=== PATIENT | male | born 1960 | race Caucasian/White ===

== ENCOUNTER 2019-12-27 06:10 | Day surgery (SDC) | payer BC, OTHER ==
[~2019-12-27] VITALS: Ht 182.9 cm; Wt 117.3 kg
[2019-12-27] MEDS ORDERED: AMLODIPINE BESYL5 MG PO (06:54)
[2019-12-27] MEDS ORDERED: LANTUS SOL100 UNIT/1 SUB-Q (06:54)
[2019-12-27] MEDS ORDERED: ATORVASTATIN CA10 MG PO (06:56)
[2019-12-27] MEDS ORDERED: PIOGLITAZONE HC15 MG PO (06:57)
[2019-12-27] MEDS ORDERED: CELECOXIB100 MG PO (06:57)
[2019-12-27] MEDS ORDERED: GABAPENTIN300 MG PO (06:57)
[2019-12-27] MEDS ORDERED: LOSARTAN POTAS100 MG PO (06:57)
[2019-12-27] MEDS ORDERED: FLUOXETINE HCL20 MG PO (06:58)
[2019-12-27] MEDS ORDERED: TRULICITY1.5 MG/0.5 (06:58)
[2019-12-27] MEDS ORDERED: DICLOFENAC SODI75 MG PO (06:58)
--- NOTE | 2019-12-27 08:06 | NUR ---
12/27/19 0806 Amy Kidd 0803- PT OT PACU IN LL POSITION EYES CLOSED. PT RESPONDS TO VERBAL STIMULI AND DENIES PAIN. BREATHING EASY AND UNLABORED. SPO2 >95% ON 2 L O2 VIA NC. POC DISCUSSED WITH PT. PT ENCOURAGED TO PASS GAS.
--- NOTE | 2019-12-27 10:17 | OR ---
[facility] [address], [place] [address] Signed DATE OF OPERATION: 12/27/2019 SURGEON: Toma Fitzgerald MD PREOPERATIVE DIAGNOSIS: Sister with colonic polyps in her late 50s. POSTOPERATIVE DIAGNOSES: 1. Minimal internal hemorrhoids. 2. Sessile cecal/ileocecal valve mass ( /clip) and polyp #2. 3. 5 mm polyp proximal right colon. 4. 5 mm polyp at 50 cm. 5. 5 mm polyp at 25 cm. 6. 7 mm polyp at 20 cm. 7. 5 mm polyp at 15 cm (rectum). PROCEDURE: Colonoscopy with snare polypectomy, hot biopsy, and placement of clip. ESTIMATED BLOOD LOSS: None. INDICATIONS: Homer is a 59-year-old diabetic gentleman, asked to see me for his initial colonoscopy. He explained that his sister had colonic polyps removed in her late 50s. She has to go every 5 years for her procedures. Homer really has no lower GI complaints. I had given him a pamphlet on colonoscopy and he understands the nature of that test along with its risks including, but not limited to gas bloating, crampy abdominal pain, bleeding, perforation requiring surgery, and missed diagnosis. He also understands the need for IV conscious sedation. He had expressed understanding and wished to proceed. PROCEDURE NOTE: Homer was taken into our endoscopy suite and placed in the left lateral decubitus position. He was given a total of 8 mg of Versed and 200 mcg of fentanyl to cover the case. A digital rectal exam was performed and this was unremarkable. The adult colonoscope was introduced and advanced under direct visualization of the camera. He had a loop in his colon around 35 cm. It took a few minutes to get through this area and then the scope passed to about the hepatic flexure. He needed extra sedation and abdominal compression in order to get the scope down to the cecum itself. His prep was Electronically Signed By: TOMA FITZGERALD MD 12/27/19 1017 PATIENT NAME: HOMER HURTADO OPERATIVE REPORT DATE OF : 62 REPORT #: [id number] PHYSICIAN: TOMA FITZGERALD MD PCP: AUNG SHEA REPORT IS CONFIDENTIAL AND NOT TO BE RELEASED WITHOUT AUTHORIZATION [facility] [address], [place] [address] Signed good. We could easily see the appendiceal orifice and the ileocecal valve. We took pictures throughout for photodocumentation. He has a sessile cecal mass along the ileocecal valve, which we took multiple biopsies with a hot biopsy forceps along with our snare. He had little bleeding on 1 side, so we placed a clip and then there was another polyp opposite of that in the cecum and we simply removed it with hot biopsy forceps and placed it into the same jar. As the scope was withdrawn, then we removed the other polyps with the help of our hot biopsy forceps. We did not see any diverticulosis. The scope was then retroflexed in the rectum, and he does have minimal internal hemorrhoid tissue. After this, the gas was suctioned out. Colonoscope removed. Homer tolerated his procedure quite well. RECOMMENDATIONS: I will see Homer back in my office in 7 to 14 days to review his results. He may need a right colectomy and/or a repeat colonoscopy depending on the pathology results for this cecal mass. Toma Fitzgerald MD ALB/MODL /[id number] cc: Toma Fitzgerald MD Chart Filed Incomplete RADHA Gordon Copies: TOMA FITZGERALD MD CHART FILED INCOMPLETE ~ Electronically Signed By: TOMA FITZGERALD MD 12/27/19 1017 PATIENT NAME: HOMER HURTADO OPERATIVE REPORT DATE OF : 62 REPORT #: [id number] PHYSICIAN: TOMA FITZGERALD MD PCP: AUNG SHEA REPORT IS CONFIDENTIAL AND NOT TO BE RELEASED WITHOUT AUTHORIZATION
--- NOTE | 2019-12-28 11:43 | PATH ---
[facility] [address] [place], [place] [address] Signed SPECIMEN(S): A COLON POLYP AT 25 CM SPECIMEN(S): B COLON POLYP AT 50 CM SPECIMEN(S): C CECAL POLYP SPECIMEN(S): D PROXIMAL ASCENDING POLYP SPECIMEN(S): E COLON POLYP AT 20 CM SPECIMEN(S): F COLON POLYP AT 15 CM SPECIMEN SOURCE: A. COLON POLYP AT 25 CM B. COLON POLYP AT 50 CM C. CECAL POLYP D. PROXIMAL ASCENDING POLYP E. COLON POLYP AT 20 CM F. COLON POLYP AT 15 CM CLINICAL HISTORY: Colonoscopy. Family history of polyps, screening. Rule out cecal cancer, . MICROSCOPIC DESCRIPTION: Histologic sections of all submitted blocks are examined by light microscopy. These findings, together with the gross examination, support the pathologic diagnosis. FINAL PATHOLOGIC DIAGNOSIS: A. Colon, polyp at 25 cm, polypectomy: - Fragments of tubular adenoma. - Negative for high-grade dysplasia or malignancy. B. Colon, polyp at 50 cm, polypectomy: - Tubular adenoma. - Negative for high-grade dysplasia or malignancy. C. Colon, cecum, polyp, polypectomy: - Fragments of tubulovillous adenoma. - Negative for high-grade dysplasia or malignancy. D. Colon, proximal ascending, polyp, polypectomy: - Tubular adenoma. - Negative for high-grade dysplasia or malignancy. E. Colon, polyp at 20 cm, polypectomy: - Hyperplastic polyp. - Negative for dysplasia or malignancy. F. Colon, polyp at 15 cm, polypectomy: - Tubular adenoma. - Negative for high-grade dysplasia or malignancy. PATIENT NAME: DIANA HURTADO PATHOLOGY DATE OF : 62 REPORT #: [id number] PHYSICIAN: LUCY SANABRIA PCP: AUNG SHEA REPORT IS CONFIDENTIAL AND NOT TO BE RELEASED WITHOUT AUTHORIZATION [facility] [address] [place], [place] [address] Signed NAL:cml:C2NR GROSS DESCRIPTION: Six specimens are received in six containers, labeled "MF." A. The specimen, labeled "MF, #1," and designated on the requisition "colon polyp at 25 cm," is received in formalin and consists of one lorenz soft tissue fragment that measures 0.3 cm in greatest dimension. The specimen is entirely submitted in cassette (A1). B. The specimen, labeled "MF, #2," and designated on the requisition "colon polyp at 50 cm," is received in formalin and consists of one lorenz soft tissue fragment that measures 0.3 cm in greatest dimension. The specimen is entirely submitted in cassette (B1). C. The specimen, labeled "MF, #3," and designated on the requisition "cecal polyp," is received in formalin and consists of multiple lorenz soft tissue fragments that measure 0.4 cm in greatest dimension. The specimen is entirely submitted in cassette (C1). D. The specimen, labeled "MF, #4," and designated on the requisition "proximal ascending/right polyp," is received in formalin and consists of one lorenz soft tissue fragment that measures 0.4 cm in greatest dimension. The specimen is entirely submitted in cassette (D1). E. The specimen, labeled "MF, #5," and designated on the requisition "colon polyp at 20 cm," is received in formalin and consists of one lorenz soft tissue fragment that measures 0.3 cm in greatest dimension. The specimen is entirely submitted in cassette (E1). F. The specimen, labeled "MF #6," and designated on the requisition "colon polyp at 15 cm," is received in formalin and consists of one lorenz soft tissue fragment that measures 0.3 cm in greatest dimension. The specimen is entirely submitted in cassette (F1). AT (under the direct supervision of a pathologist) The Gross Description was prepared using a voice recognition system. The report was reviewed for accuracy; however, sound-alike word errors, addition and/or deletions may occur. If there is any question about this report, please contact Client Services. PERFORMING LABORATORY: The technical component was performed by [facility] [address] (Pipe Smoking Machine Offbearer: Ivett Richard MD; CLIA# [id number]). [facility] [address] [address] (CLIA# [id number]). PATIENT NAME: DIANA HURTADO PATHOLOGY DATE OF : 62 REPORT #: [id number] PHYSICIAN: LUCY SANABRIA PCP: AUNG SHEA REPORT IS CONFIDENTIAL AND NOT TO BE RELEASED WITHOUT AUTHORIZATION [facility] [address] [place], [place] [address] Signed Diagnostician: Tatiana Natarajan MD Pathologist Electronically Signed 12/28/2019 Copies: ~ PATIENT NAME: DIANA HURTADO PATHOLOGY DATE OF : 62 REPORT #: [id number] PHYSICIAN: LUCY PATHOLOGY PCP: AUNG SHEA REPORT IS CONFIDENTIAL AND NOT TO BE RELEASED WITHOUT AUTHORIZATION
== END 2019-12-27 08:40 | disposition home or self-care (01) ==
LOC: OPS 06:10 → DS 06:10 → OPS 08:15 → DS 08:15 → OPS 08:40
PROVIDERS: ATTEND Colon & Rectal Surgery
PROC: 0DBE8ZZ Excision of Large Intestine, Via Natural or Artificial Opening Endoscopic (ICD-10-PCS; 2019-12-27)
PROC: 0DBH8ZZ Excision of Cecum, Via Natural or Artificial Opening Endoscopic (ICD-10-PCS; 2019-12-27)
PROC: 0D5K8ZZ Destruction of Ascending Colon, Via Natural or Artificial Opening Endoscopic (ICD-10-PCS; 2019-12-27)
PROC: 0DBK8ZZ Excision of Ascending Colon, Via Natural or Artificial Opening Endoscopic (ICD-10-PCS; principal; 2019-12-27 08:15)
DX: Z12.11 Encounter for screening for malignant neoplasm of colon (principal); D12.0 Benign neoplasm of cecum; D12.2 Benign neoplasm of ascending colon; D12.6 Benign neoplasm of colon, unspecified; K64.8 Other hemorrhoids; Z83.71 Family history of colonic polyps
CPT/HCPCS: 99153; G0500; J0690; J2250; J3010; J7121

== ENCOUNTER 2020-03-20 06:15 | Day surgery (SDC) | payer BC, OTHER ==
--- NOTE | 2020-03-17 11:48 | NUR ---
Both nares swabbed for Covid-19 without complication. Sample taken to [facility]. Patient given pre-procedure preparation self-isolation handout.
[~2020-03-20] VITALS: Ht 182.9 cm; Wt 117.3 kg
[~2020-03-20 06:15] MED LIST: AMLODIPINE BESYL5 MG PO; ATORVASTATIN CA10 MG PO; CELECOXIB100 MG PO; DICLOFENAC SODI75 MG PO; FLUOXETINE HCL20 MG PO; GABAPENTIN300 MG PO; LANTUS SOL100 UNIT/1 SUB-Q; LOSARTAN POTAS100 MG PO; PIOGLITAZONE HC15 MG PO; TRULICITY1.5 MG/0.5
[2020-03-20] MEDS ORDERED: ULTRAM50 MG PO (06:28)
--- NOTE | 2020-03-20 08:41 | NUR ---
03/20/20 0841 Ángel Anderson RESPONDS TO VOICE ON ENTRY TO PACU, DENIES NAUSEA OR PAIN. FALLS ASLEEP EASILY. REPOSITIONED IN BED AT 0830 AND SIPS OF WATER TAKEN WITHOUT PROBLEMS. REFUSES OFFER OF CRACKERS. COFFEE PROVIDED. CBG 118 MG/DL ON BEDSIDE FINGERSTICK. REVIEWING DISCHARGE INSTRUCTIONS WITH PATIENT AT BEDSIDE WHILE PT SIPS COFFEE.
--- NOTE | 2020-03-20 10:45 | OR ---
[facility] [address] [place], [place] [address] Signed DATE OF OPERATION: 03/20/2020 SURGEON: Toma Carnes MD PREOPERATIVE DIAGNOSES: 1. Personal history of colonic polyps. 2. 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 POSTOPERATIVE DIAGNOSES: 1. 8 mm polyp at the ileocecal valve (tattoo). 2. 6 mm polyp at 8 cm. 3. 6 mm polyp at 72 cm. 4. Minimal internal hemorrhoids. 5. Tortuous sigmoid colon. PROCEDURES: Colonoscopy, snare polypectomy, hot biopsy and injection of tattoo. ESTIMATED BLOOD LOSS: None. INDICATIONS: Homer is a 59-year-old diabetic gentleman, who came to us a few months ago for his initial colonoscopy. He said his sister has had previous colonoscopies, but he does not know much detail. Homer himself had hyperplastic and adenomatous polyps removed. He had a significant sessile polyp on the ileocecal valve; much of that polyp had been removed. The tissue came back tubulovillous adenomatous material. No dysplasia or cancer. We asked him to come back for repeat colonoscopy to reassess that area. He understands colonoscopy quite well. He understands our bowel prep quite well. He also had done well with Versed and fentanyl. He had expressed understanding and wished to proceed. DESCRIPTION OF PROCEDURE: Homer was taken into our endoscopy suite and placed in the left lateral decubitus position. He was given a total of 8 mg of Versed and 150 mcg of fentanyl to cover the case. A digital rectal exam was performed and this was unremarkable. The adult colonoscope was introduced and advanced under direct visualization of camera. He does have a tortuous sigmoid colon; it took a few extra minutes to get through that area. His prep was slightly below average unfortunately; his first prep was much better; however, we could clearly see 80% to 85% at least of the mucosa. The scope then Electronically Signed By: TOMA CARNES MD 03/20/20 1045 PATIENT NAME: HOMER HURTADO OPERATIVE REPORT DATE OF : 62 REPORT #: [id number] PHYSICIAN: TOMA CARNES MD PCP: ZINA SHEA REPORT IS CONFIDENTIAL AND NOT TO BE RELEASED WITHOUT AUTHORIZATION [facility] [address] [place], [place] [address] Signed advanced quite readily all up to the hepatic flexure; it took just a minute to get around hepatic flexure and down into the cecum itself. We could easily see the small polyp on the edge of the ileal cecal valve; it seemed to extend just a bit down on the edge as well. We used the snare and hot biopsy forceps, removed the main portion that polyp. We then used cautery along that edge to cauterize that mucosa. We then placed a tattoo on either side of the polyp area to mohinder its location for future reference. After this, the scope was then slowly withdrawn. We had taken pictures throughout for photodocumentation. We found two other small polyps removed easily with hot biopsy forceps. Again, we came back to the tortuous sigmoid colon. Once in the rectum, the scope was retroflexed. He does have very minimal internal hemorrhoid tissue. After this, the gas was suctioned out. The colonoscope was removed. Homer tolerated the procedure quite well. RECOMMENDATIONS: I will see Homer back in my office in 7 to 14 days to review his results. He should consider repeat colonoscopy somewhere between 6 and 12 months. He probably should use a double bowel prep in the future. Toma Carnes MD [facility]/MODL /[id number] cc: Zina Carnes MD Copies: ZINA SHEA ANDREW L MD ~ Electronically Signed By: TOMA CARNES MD 03/20/20 1045 PATIENT NAME: HOMER HURTADO OPERATIVE REPORT DATE OF : 62 REPORT #: [id number] PHYSICIAN: TOMA CARNES MD PCP: ZINA SHEA REPORT IS CONFIDENTIAL AND NOT TO BE RELEASED WITHOUT AUTHORIZATION
--- NOTE | 2020-03-24 14:52 | PATH ---
[facility] [address] [place], [place] [address] Signed SPECIMEN(S): A ILEOCECAL VALVE POLYP SPECIMEN(S): B COLON POLYP AT 80 CM SPECIMEN(S): C COLON POLYP AT 72 CM SPECIMEN SOURCE: A. ILEOCECAL VALVE POLYP B. COLON POLYP AT 80 CM C. COLON POLYP AT 72 CM CLINICAL HISTORY: History of polyps. MICROSCOPIC DESCRIPTION: Histologic sections of all submitted blocks are examined by light microscopy. These findings, together with the gross examination, support the pathologic diagnosis. FINAL PATHOLOGIC DIAGNOSIS: A. Ileocecal valve polyp, polypectomy: - Fragment of tubular adenoma. - Negative for high-grade dysplasia and malignancy. B. Colon polyp at 80 cm, polypectomy: - Fragments of tubular adenoma. - Negative for high-grade dysplasia and malignancy. C. Colon polyp at 72 cm, polypectomy: - Fragments of tubular adenoma. - Negative for high-grade dysplasia and malignancy. DF:bg:C2NR GROSS DESCRIPTION: Three specimens are received in three containers, labeled "Homer Lewis." A. The specimen, labeled "Debbie Homer, 1," and designated on the requisition "ileocecal valve polyp," is received in formalin and consists of four lorenz soft tissue fragment(s) that measure 0.2-0.3 cm in greatest dimension. The specimen is entirely submitted in cassette (A1). B. The specimen, labeled "Debbie Homer, #2," and designated on the requisition "colon polyp at 80 cm," is received in formalin and consists of one lorenz soft tissue fragment(s) that measure 0.3 cm in greatest dimension. The specimen is entirely submitted in cassette (B1). C. The specimen, labeled "Homer Lewis, #3," and designated on the requisition "colon polyp at 72 cm," is received in formalin and consists of two PATIENT NAME: HOMER LEWIS PATHOLOGY DATE OF : 62 REPORT #: [id number] PHYSICIAN: LUCY PATHOLOGY PCP: AUNG SHEA REPORT IS CONFIDENTIAL AND NOT TO BE RELEASED WITHOUT AUTHORIZATION [facility] [address] [place], [place] [address] Signed lorenz soft tissue fragment(s) that measure 0.3 and 0.4 cm in greatest dimension. The specimen is entirely submitted in cassette (C1). FB (under the direct supervision of a pathologist) The Gross Description was prepared using a voice recognition system. The report was reviewed for accuracy; however, sound-alike word errors, addition and/or deletions may occur. If there is any question about this report, please contact Client Services. PERFORMING LABORATORY: The technical component was performed by [facility], [address] [place] [address] (Hydraulic Repairer: Ivett Richard MD; CLIA# [id number]). Professional interpretation was performed by [facility], [address] [place] [address] (Hydraulic Repairer: Ivett Richard MD; CLIA# [id number]). Diagnostician: Andriy Kovacs DO Pathologist Electronically Signed 03/24/2020 Copies: ~ PATIENT NAME: HOMER LEWIS PATHOLOGY DATE OF : 62 REPORT #: [id number] PHYSICIAN: LUCY PATHOLOGY PCP: AUNG SHEA REPORT IS CONFIDENTIAL AND NOT TO BE RELEASED WITHOUT AUTHORIZATION
== END 2020-03-20 08:56 | disposition home or self-care (01) ==
LOC: OPS 06:15 → DS 06:15 → OPS 06:45
PROVIDERS: ATTEND Colon & Rectal Surgery
PROC: 0DBE8ZZ Excision of Large Intestine, Via Natural or Artificial Opening Endoscopic (ICD-10-PCS; 2020-03-20)
PROC: 3E0H8KZ Introduction of Other Diagnostic Substance into Lower GI, Via Natural or Artificial Opening Endoscopic (ICD-10-PCS; 2020-03-20)
PROC: 0DBH8ZZ Excision of Cecum, Via Natural or Artificial Opening Endoscopic (ICD-10-PCS; principal; 2020-03-20 06:45)
DX: D12.0 Benign neoplasm of cecum (principal); K63.89 Other specified diseases of intestine; I10 Essential (primary) hypertension; K21.9 Gastro-esophageal reflux disease without esophagitis; E78.5 Hyperlipidemia, unspecified; E11.42 Type 2 diabetes mellitus with diabetic polyneuropathy; F32.9 Major depressive disorder, single episode, unspecified; Z79.4 Long term (current) use of insulin; Z79.899 Other long term (current) drug therapy; Z83.71 Family history of colonic polyps; K64.8 Other hemorrhoids
CPT/HCPCS: 99153; G0500; J0690; J2250; J3010; J7121

== ENCOUNTER 2023-10-26 05:45 | Day surgery (SDC) | payer MEDICARE, OTHER ==
[2023-10-24 14:24] VITALS: BP 123/80
[~2023-10-26] VITALS: Ht 182.9 cm; Wt 119.5 kg
[~2023-10-26 05:45] MED LIST changes: +ALLER-EASE180 MG PO; +OMEPRAZOLE20 MG PO; +PRAZOSIN HCL2 MG PO; +TRAZODONE HCL50 MG PO; +TRIAMTERENE-HC1 EAC3 PO; +ULTRAM50 MG PO; +VITAMIN B-12500 MC3 SL
[2023-10-26 05:53] VITALS: BP 159/81
[2023-10-26] MEDS ORDERED: LACTATED RINGER'S 1,000 ML IV SCH (07:00)
[2023-10-26] MEDS ORDERED: CEFAZOLIN SODIUM 2 GM/20 ML SYR IV SCH (07:00)
[2023-10-26] MEDS ORDERED: IBLOOD GLUCOSE TEST STRIP 1 EA TEST VI PRN (07:00)
[2023-10-26] MEDS ORDERED: LIDOCAINE HCL 1% 5 ML SDV INJ ONE (07:00)
[2023-10-26] MEDS ORDERED: propofoL 200 MG/20 ML VIAL ONE ×2 (07:21→08:11)
[2023-10-26] MEDS ORDERED: LIDOCAINE HCL 2% 5 ML SDV ONE (07:21)
--- NOTE | 2023-10-26 08:56 | NUR ---
10/26/23 0856 Reta Mackey 0850: OXYGEN SATURATION REMAINS 100% ON 4L VIA NC. OXYGEN REDUCED TO 3L VIA NC. 0855: OXYGEN SATURATION REMAINS 100% 3L VIA NC. OXYGEN REDUCED TO 2L VIA NC.
[2023-10-26 09:44] VITALS: BP 145/88
--- NOTE | 2023-10-27 06:27 | OR ---
[facility] [address], [place] [address] Signed DATE OF OPERATION: 10/26/2023 SURGEON: Toma Fitzgerald MD PREOPERATIVE DIAGNOSES: 1. Gastroesophageal reflux disease. 2. Burping. 3. Irritable bowel syndrome with constipation. 4. Sister with a history of colonic polyps in her 50s. 5. Personal history of colonic polyps in 2019 at age 59. 6. 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 7. Internal hemorrhoids. 8. Tortuous sigmoid colon (35 cm). POSTOPERATIVE DIAGNOSES: 1. Mild gastroduodenitis. 2. A 15 mm sessile polyp on the ileocecal valve (tattoo, snare). 3. Tortuous sigmoid colon (35 cm). PROCEDURES: 1. Esophagogastroduodenoscopy with CLOtest and biopsies of the pyloric bulb and antrum. 2. Colonoscopy snare polypectomy and cautery with a hot biopsy forceps. INDICATIONS: Homer is a 62-year-old obese diabetic gentleman, asked to see me for a followup colonoscopy. In addition, he has been having trouble with acid reflux and burping. He has been on omeprazole. Consequently, his primary care provider also wanted him to have an upper endoscopy at the same time. He has a history of irritable bowel syndrome and maybe even some constipation. We also know his sister had colonic polyps in her late 50s. His sister continues to do well. I helped Homer with a colonoscopy in 2019 at the age of 59. This was his initial colonoscopy. He had a fairly significant sessile tubulovillous adenomatous polyp on the cecum edge of the ileocecal valve. He had several other adenomatous polyps in the colon and hyperplastic polyp in the rectum. He had mild internal hemorrhoids. He also has a very difficult tortuous sigmoid colon at about 35 cm. He has large amounts of Versed and fentanyl to get through the case. We brought him back in March 2020 and repeated the colonoscopy. We removed the rest of the polyp on the ileocecal valve, which came back adenomatous tissue. We also left a tattoo in this area. He always has a tortuous sigmoid colon. He had two other adenomas polyps as well. Again, used large amount of Versed and fentanyl. He also has his Electronically Signed By: TOMA FITZGERALD MD 10/27/23 0627 PATIENT NAME: HOMER HURTADO OPERATIVE REPORT DATE OF : 62 REPORT #: [id number] PHYSICIAN: TOMA FITZGERALD MD PCP: ZINA SHEA REPORT IS CONFIDENTIAL AND NOT TO BE RELEASED WITHOUT AUTHORIZATION [facility] [address], [place] [address] Signed internal hemorrhoids. We have recommended that he come back on this occasion for followup colonoscopy. We also recommend he use a double bowel prep. He told me he made it through about 3/4 of a gallon of the polyethylene glycol. It another 32 ounces. 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 He is very familiar with upper and lower endoscopy. He is aware there are risk including, but not limited to gas bloating, crampy abdominal pain, bleeding, perforation requiring surgery, and missed diagnosis. We had reviewed the written instructions for the bowel prep again line by line. He did volunteer to use a double prep as we recommended. He seems to be fairly sensitive and said he started to vomit. We may have to change his prep in the future. We had asked him to actually hold his Trulicity one week prior to the procedure. He did not do that. He did hold the diclofenac. He said he does not take his diabetic pills till noon, so he will have his colonoscopy and upper endoscopy completed in the morning prior to this. He also has a very full around face. He is obese with a heavy neck, chest and abdomen along with his diabetes. In addition, he uses a very large amount of Versed and fentanyl. We felt it was much safer on this occasion. He was given monitored anesthesia care, propofol infusion. That turned out to be melendez as he also has a very large tongue and he obstructs quite easily. He understands an adult person has to take him afterwards. He also received IV Ancef for the metal in his left knee and ankle. He had expressed understanding and wished to proceed. PROCEDURE IN DETAIL: Homer was taken into our endoscopy suite and placed in a supine semi-recumbent position. He was given monitored anesthesia care propofol infusion per our nurse straight truck driver. We utilized a bite block for the upper endoscopy. The adult gastroscope was introduced and advanced out into the third portion of the duodenum under direct visualization of camera without difficulty. The duodenum was unremarkable. He had some mild patchy inflammation in the pyloric bulb and stomach. We went ahead and took a biopsy of the pyloric bulb and the antrum for pathologic review. We took an additional biopsy from the antrum for CLOtest. There were no ulcerations. Upon retroflexion of scope we could not appreciate a hiatal hernia. The scope was withdrawn up through the area of the GE junction, which was compliant without stricture. There was no gastric or esophageal varices. Very little if any disruption to the Z-line. There was no Johnson's mucosa. There was no esophagitis. The middle and upper esophagus was unremarkable. After this, the gas was suctioned out, the gastroscope removed. Homer tolerated the procedure quite well. Homer was rotated into the left lateral decubitus position. He was maintained on IV propofol per our nurse straight truck driver. He needed frequent airway monitoring per the nurse straight truck driver. A digital rectal exam was performed. He had good sphincter tone. No external hemorrhoids. No masses. The adult colonoscope was introduced and advanced under direct visualization of camera. He clearly has a tortuous, difficult sigmoid Electronically Signed By: TOMA FITZGERALD MD 10/27/23 0627 PATIENT NAME: HOMER HURTADO OPERATIVE REPORT DATE OF : 62 REPORT #: [id number] PHYSICIAN: TOMA FITZGERALD MD PCP: ZINA SHEA REPORT IS CONFIDENTIAL AND NOT TO BE RELEASED WITHOUT AUTHORIZATION [facility] [address] [place], [place] [address] Signed colon grape picker particular up around 35 cm. It took a few minutes. We finally got through this area. We made it around into the distal right colon. The scope continued to buckle even with two people applying abdominal pressure. We therefore rotated him into the supine position. Again, with some abdominal compression we finally got the scope to drop down into the cecum itself. Unfortunately, his prep was moderate. He still had quite a bit of corn in his cecum. He also had some in the right colon. We could see that the polyp had returned. There was a tattoo on other side. It is right on the edge of the ileocecal valve. We took almost all that polyp off with our snare and suctioned it through the scope. On the back of the fold next to the corn, we were having trouble with one piece of polyp remaining. It is probably 8 mm in diameter. Eventually, we were getting a little bleeding from going a little deep with the snare. We cauterized that bleeding with our hot biopsy forceps. We just simply laid it on top and that controlled the bleeding quite nicely. We decided we are going to bring him back with a different bowel prep and go after his remaining polyp tissue. There was a polyp in his mid right colon, but again this area was covered in corn at this point and we could not find it. Otherwise, the rest of the colon was fine. No diverticulosis. The rectum was unremarkable. He had enough corn in the rectum, we could retroflex the scope and see his anal canal. Consequently, the gas was suctioned out. The colonoscope removed. Overall, Homer tolerated the procedure quite well. RECOMMENDATIONS: I will see Homer back in my office in 7 to 14 days to review his results. He will need a colonoscopy somewhere at the end of three months out to about 12 months. We need to go back and look at the ileocecal valve and finish the polypectomy. He needs a full commercial bowel prep. He will always need monitored anesthesia care as well. MD MICK Nava/BOGDANL /[id number] cc: iZna Fitzgerald MD Electronically Signed By: TOMA FITZGERALD MD 10/27/23 0627 PATIENT NAME: HOMER HURTADO OPERATIVE REPORT DATE OF : 62 REPORT #: [id number] PHYSICIAN: TOMA FITZGERALD MD PCP: ZINA SHEA REPORT IS CONFIDENTIAL AND NOT TO BE RELEASED WITHOUT AUTHORIZATION [address] [place], [place] [address] Signed Copies: ZIAN SHEA ANDREW L MD ~ Electronically Signed By: TOMA FITZGERALD MD 10/27/23 0627 PATIENT NAME: HOMER HURTADO OPERATIVE REPORT DATE OF : 62 REPORT #: [id number] PHYSICIAN: TOMA FITZGERALD MD PCP: ZINA SHEA REPORT IS CONFIDENTIAL AND NOT TO BE RELEASED WITHOUT AUTHORIZATION
--- NOTE | 2023-10-28 12:46 | PATH ---
[facility] [place] [facility] [address] [place], [place] [address] Signed SPECIMEN(S): A DUODENAL BIOPSY SPECIMEN(S): B ANTRUM/PYLORUS BIOPSY SPECIMEN(S): C CECUM COLON POLYP SPECIMEN SOURCE: A. DUODENAL BIOPSY B. ANTRUM/PYLORUS BIOPSY C. CECUM COLON POLYP CLINICAL HISTORY: History of polyps. Postop: Gastroduodenitis, cecal polyp, tortuous sigmoid colon FINAL PATHOLOGIC DIAGNOSIS: A. Duodenum, biopsy: - Duodenal mucosa with no significant pathologic changes B. Stomach, antrum/pylorus, biopsy: - Gastric antral mucosa with no significant pathologic changes - Negative for Helicobacter pylori with HE stains C. Cecum, polypectomy: - Sessile serrated polyp with low-grade adenomatous dysplasia BRP MICROSCOPIC EXAMINATION: Histologic sections of all submitted blocks are examined by light microscopy. These findings, together with the gross examination, support the pathologic diagnosis. GROSS DESCRIPTION: A. The specimen, labeled and designated "Frovarp, designated per requisition, duodenum biopsy," is received in formalin and consists of one fragment of soft lorenz tissue that is up to 0.3 cm in greatest dimension. Entirely submitted in (A1). B. The specimen, labeled and designated "Frovarp, designated per requisition, antrum/pylorus biopsy," is received in formalin and consists of one fragment of soft lorenz tissue that is up to 0.3 cm in greatest dimension. Entirely submitted in (B1). C. The specimen, labeled and designated "Frovarp, designated per requisition, cecum polyp," is received in formalin and consists of multiple fragments of soft lorenz tissue that are up to 2.5 x 1.5 x 0.3 cm in greatest dimension. Entirely submitted in (C1). PATIENT NAME: DIANA HURTADO PATHOLOGY DATE OF : 62 REPORT #: [id number] PHYSICIAN: LUCY SANABRIA PCP: AUNG SHEA PAC REPORT IS CONFIDENTIAL AND NOT TO BE RELEASED WITHOUT AUTHORIZATION [facility] [place] [facility] [address] [place], [place] [address] Signed TW (under the direct supervision of a pathologist) The Gross Description was prepared using a voice recognition system. The report was reviewed for accuracy; however, sound-alike word errors, addition and/or deletions may occur. If there is any question about this report, please contact Client Services. ADDITIONAL NOTES: Immunohistochemical and/or in situ hybridization studies if performed in this case included appropriate positive controls that reacted as expected. This test was developed and its performance characteristics determined by [facility]. It has not been cleared or approved by the U.S. Food and Drug Administration. The FDA has determined that such clearance or approval is not necessary. This test is used for clinical purposes. It should not be regarded as investigational or for research. [facility] is certified under the Clinical Laboratory Improvement Amendments of 1988 (CLIA) as qualified to perform high complexity clinical laboratory testing. PERFORMING LABORATORY: Technical component was performed by [facility], [address] [place] [id number] (CLIA# [id number]). Professional interpretation was performed by [facility] - [facility], [address] [address] (CLIA# [id number]). Diagnostician: Osmar Price MD Pathologist Electronically Signed 10/28/2023 Copies: ~ PATIENT NAME: DIANA HURTADO PATHOLOGY DATE OF : 62 REPORT #: [id number] PHYSICIAN: LUCY PATHOLOGY PCP: AUNG SHEA PAC REPORT IS CONFIDENTIAL AND NOT TO BE RELEASED WITHOUT AUTHORIZATION
== END 2023-10-26 09:36 | disposition home or self-care (01) ==
LOC: DS 05:45 → OPS 05:45 → DS 09:00 → OPS 09:36
PROVIDERS: ATTEND Colon & Rectal Surgery
PROC: 0DB78ZX Excision of Stomach, Pylorus, Via Natural or Artificial Opening Endoscopic, Diagnostic (ICD-10-PCS; principal; 2023-10-26 07:30)
PROC: 0DBC8ZZ Excision of Ileocecal Valve, Via Natural or Artificial Opening Endoscopic (ICD-10-PCS; 2023-10-26 07:30)
DX: D12.0 Benign neoplasm of cecum (principal); K29.70 Gastritis, unspecified, without bleeding; K29.80 Duodenitis without bleeding; K63.89 Other specified diseases of intestine; K21.9 Gastro-esophageal reflux disease without esophagitis; K58.1 Irritable bowel syndrome with constipation; Z86.010 Personal history of colon polyps; Z83.719 Family history of colon polyps, unspecified; K59.09 Other constipation; I10 Essential (primary) hypertension; E11.40 Type 2 diabetes mellitus with diabetic neuropathy, unspecified; E78.5 Hyperlipidemia, unspecified; E66.9 Obesity, unspecified; Z87.891 Personal history of nicotine dependence; Z68.35 Body mass index [BMI] 35.0-35.9, adult; Z79.4 Long term (current) use of insulin; Z79.84 Long term (current) use of oral hypoglycemic drugs; Z79.899 Other long term (current) drug therapy; Z88.1 Allergy status to other antibiotic agents; Z88.5 Allergy status to narcotic agent
CPT/HCPCS: 00813; 36415; 87077; J0690; J2001; J2704; J7121

== ENCOUNTER 2024-03-15 05:45 | Day surgery (SDC) | payer MEDICARE, OTHER ==
[2024-03-12 14:37] VITALS: BP 111/77
[~2024-03-15] VITALS: Ht 182.9 cm; Wt 116.4 kg
[~2024-03-15 05:45] MED LIST changes: +BUSPIRONE HCL7.5 MG PO; +CEFDINIR300 MG PO; +CELEXA10 MG PO; +CITALOPRAM HBR10 MG PO; +FLOMAX0.4 MG PO; +FOSAMAX70 MG PO; +K-TAB ER20 MEQ PO; +LASIX20 MG PO; +LEVOTHYROXINE112 MC1 PO; +MELATONIN5 M2 PO; +NORVASC10 MG PO; +PANTOPRAZOLE SO40 MG PO
[2024-03-15 06:00] VITALS: BP 148/86
[2024-03-15] MEDS ORDERED: LACTATED RINGER'S 1,000 ML IV SCH (06:45)
[2024-03-15] MEDS ORDERED: CEFAZOLIN SODIUM 2 GM/20 ML SYR IV SCH (07:00)
[2024-03-15] MEDS ORDERED: LIDOCAINE HCL 2% 5 ML SDV ONE (07:08)
[2024-03-15] MEDS ORDERED: propofoL 200 MG/20 ML VIAL ONE ×3 (07:08→08:00)
--- NOTE | 2024-03-15 07:27 | NUR ---
PT NOT AVAILABLE FOR VISIT. PROVIDED PRAYER.
[2024-03-15] MEDS ORDERED: NALOXONE HCL 0.4 MG SYR IV PRN (07:30)
[2024-03-15] MEDS ORDERED: IBLOOD GLUCOSE TEST STRIP 1 EA TEST VI PRN (07:30)
--- NOTE | 2024-03-15 08:34 | NUR ---
03/15/24 0834 Jenny Rivera 0808- PT ARRIVES TO THE PACU WITH AN ORAL AIRWAY IN PLACE AND ON 2L OF O2 VIA NASAL CANNULA. BREATHING IS EVEN AND UNLABORED. PT VSS. ABDOMEN IS SOFT AND NON DISTENDED AND LAYING ON HIS LEFT SIDE. LR INFUSING IN HIS R FOREARM. PT IS NONREACTIVE TO TACTILE STIMULI. 0817- PT IS MOVING HIS ARMS OFF AND ON AND BEGINS TO COUGH. ORAL AIRWAY REMOVED. PT ENCOURAGED TO PASS GAS. PT DENIES PAIN AND NAUSEA WHEN ASKED AND EASILY FALLS BACK TO SLEEP WITH SOME SNORING NOTED. 0831- O2 TURNED OFF AND REMOVED PT IS ABLE TO MAINTAIN ABOVE 98%. PT PASSING GAS OFF AND ON. NO APPARENT DISTRESS AND EASILY FALLS BACK TO SLEEP BUT IS EASILY REACTIVE TO VERBAL STIMULI.
[2024-03-15 08:47] VITALS: BP 139/95
--- NOTE | 2024-03-15 11:00 | OR ---
[facility] [address] [place], [place] [address] Signed DATE OF OPERATION: 03/15/2024 SURGEON: Toma Fitzgerald MD PREOPERATIVE DIAGNOSES: 1. A sister with colonic polyps in her 50s. 2. Chronic constipation associated with diabetes. 3. Personal history of colonic polyps in 2020 at age 59. 4. Internal hemorrhoids. 5. A tortuous sigmoid colon. 6. A tattoo on ileocecal valve/cecum. POSTOPERATIVE DIAGNOSES: 1. Right-sided diverticula x2. 2. Minimal internal hemorrhoids. 3. Tortuous sigmoid colon. PROCEDURE: Colonoscopy without biopsy. ESTIMATED BLOOD LOSS: None. INDICATIONS: Homer is a 63-year-old obese diabetic gentleman, asked to see me for a followup colonoscopy. Interestingly, he was also talking about upper endoscopy scheduled for that today for some reason. He is not able to tell me why. There was some concern about irritable bowel syndrome associated with his constipation and/or his diabetes. We know his sister had colonic polyps in her late 50s. Homer had a colonoscopy in 2019 at the age of 59. This was his initial colonoscopy. He had a fairly significant tubulovillous adenomatous polyp in the cecum and on the edge of the ileocecal valve. He also had several other adenomatous polyps and hyperplastic polyps as well. He had internal hemorrhoids. He has a very difficult tortuous sigmoid colon particular up around 35 cm. He used enormous amounts of Versed and fentanyl. He came back a few months later in March 2020 to repeat the colonoscopy. We removed the rest of the polyp on the ileocecal valve and it came back adenomatous tissue. We left a tattoo. Again, he has a tortuous sigmoid colon along with his internal hemorrhoids and we found two other adenomatous polyps. Again, large amounts of Versed and fentanyl. We recommended he use monitored anesthesia care in the future as well as a double bowel prep. We had an enormously long discussion in the office on a double bowel prep. He is Electronically Signed By: TOMA FITZGERALD MD 03/15/24 1100 PATIENT NAME: HOMER HURTADO OPERATIVE REPORT DATE OF : 62 REPORT #: [id number] PHYSICIAN: TOMA FITZGERALD MD PCP: ZINA SHEA PAC REPORT IS CONFIDENTIAL AND NOT TO BE RELEASED WITHOUT AUTHORIZATION [facility] [address] [place] [id number] Signed quite convinced, someone in our preop area told him to only use the single bowel prep. Thankfully, he was fairly clean today. He returns now for his followup colonoscopy. He tells me there is really no change in his bowel habits. In the office I had given him a pamphlet on colonoscopy. He is now very familiar with the test. There is risk including, but not limited to gas bloating, crampy abdominal pain, bleeding, perforation requiring surgery and missed diagnosis. I also went over the bowel prep with him and marked it appropriately for double bowel prep. Yet he only took a single prep. We always go over his medications carefully together and I marked that on the preop sheet. We also gave him Ancef because of his hip replacement. We also asked for monitored anesthesia care on this occasion and it did help significantly. He had expressed understanding and wished to proceed. DESCRIPTION OF PROCEDURE: Homer was taken into our endoscopy suite, placed in the left lateral decubitus position. He was given monitored anesthesia care with propofol infusion per our nurse community relations assistant. A digital rectal exam was performed and this was unremarkable. The adult colonoscope was introduced and advanced under direct visualization of the camera. It took very slow careful maneuvering to get the camera up through the sigmoid colon. It started to open up more as we went through the left colon and transverse colon. Unfortunately, the scope continues to drag in the sigmoid colon. We eventually made it around his somewhat difficult hepatic flexure and down into the cecum itself with increased propofol and some abdominal compression. He had quite a bit of liquid stool in the cecum. We irrigated and suctioned that out completely. We could easily see the ileocecal valve and his appendiceal orifice. Interestingly, we never saw a tattoo. We looked very carefully in this area and saw no evidence of any recurrent polyp. As the scope was withdrawn, I saw a couple of moderate-sized diverticula in the right colon. There was a small lipoma in the distal transverse colon as well. We pulled the camera back down through his very tortuous sigmoid colon into the rectum. Upon retroflexion of scope he has minimal internal hemorrhoid columns. After this, the gas was suctioned out, colonoscope removed. Homer tolerated the procedure quite well. RECOMMENDATIONS: Homer can follow up in three years for a repeat colonoscopy with respect to his polyps. He will always need monitored anesthesia care. He really should consider a double bowel prep in the future. Toma Fitzgerald MD Electronically Signed By: TOMA FITZGERALD MD 03/15/24 1100 PATIENT NAME: HOMER HURTADO OPERATIVE REPORT DATE OF : 62 REPORT #: [id number] PHYSICIAN: TOMA FITZGERALD MD PCP: ZINA SHEA PAC REPORT IS CONFIDENTIAL AND NOT TO BE RELEASED WITHOUT AUTHORIZATION [address] [place] [address] Signed [facility] /[id number] cc: MD Zina Nava Copies: TOMA FITZGERALD MD, ELIZABETH PAC ~ Electronically Signed By: TOMA FITZGERALD MD 03/15/24 1100 PATIENT NAME: HOMER HURTADO OPERATIVE REPORT DATE OF : 62 REPORT #: [id number] PHYSICIAN: TOMA FITZGERALD MD PCP: ZINA SHEA PAC REPORT IS CONFIDENTIAL AND NOT TO BE RELEASED WITHOUT AUTHORIZATION
== END 2024-03-15 08:59 | disposition home or self-care (01) ==
LOC: DS 05:45
PROVIDERS: ATTEND Colon & Rectal Surgery
PROC: 0DJD8ZZ Inspection of Lower Intestinal Tract, Via Natural or Artificial Opening Endoscopic (ICD-10-PCS; principal; 2024-03-15 07:30)
DX: K63.89 Other specified diseases of intestine (principal); K64.8 Other hemorrhoids; K57.30 Diverticulosis of large intestine without perforation or abscess without bleeding; K59.09 Other constipation; E66.9 Obesity, unspecified; I10 Essential (primary) hypertension; K21.9 Gastro-esophageal reflux disease without esophagitis; E78.2 Mixed hyperlipidemia; M19.072 Primary osteoarthritis, left ankle and foot; M19.071 Primary osteoarthritis, right ankle and foot; E11.40 Type 2 diabetes mellitus with diabetic neuropathy, unspecified; Z68.35 Body mass index [BMI] 35.0-35.9, adult; Z79.899 Other long term (current) drug therapy; Z83.719 Family history of colon polyps, unspecified; Z88.5 Allergy status to narcotic agent; Z86.0100 Personal history of colon polyps, unspecified
CPT/HCPCS: 00811; J0690; J2003; J2704; J7121